=== PATIENT | male | born 1980 | race American Indian/Alaskan Native ===

== ENCOUNTER 2019-12-19 15:48 | Emergency (ER) | payer OTHER ==
[2019-12-19] MEDS ORDERED: ASPIRIN 325 MG TAB PO ONE (16:02)
--- NOTE | 2019-12-19 16:41 | XRay Report ---
CHEST 1 VIEW INDICATION / CLINICAL INFORMATION: Chest Pain. COMPARISON: 02/09/2016 FINDINGS: SUPPORT DEVICES: None. HEART / MEDIASTINUM: No significant abnormality. LUNGS / PLEURA: No significant pulmonary or pleural abnormality. No pneumothorax. ADDITIONAL FINDINGS: No significant additional findings. IMPRESSION: 1. No acute findings. Signer Name: Jacob Chatman MD Signed: 12/19/2019 4:37 PM Workstation Name: [id number]
[2019-12-19 16:48] LABS: Hemoglobin 12.8 gm/dl (11.8-15.2); Mean Corpuscular HGB Conc 33 % (32-34); Mean Corpuscular Volume 89 fl (84-94); Platelet Count 233 K/mm3 (140-440); Red Blood Count 4.38 M/mm3 (3.65-5.03); Red Cell Distribution Width 13.2 % (13.2-15.2)
[2019-12-19 17:07] LABS: BUN/Creatinine Ratio 7; Blood Urea Nitrogen 8 mg/dL (9-20); Calcium 8.5 mg/dL (8.4-10.2); Hemolysis Index 24
--- NOTE | 2019-12-19 17:51 | Emergency Department Report ---
ED Chest Pain HPI - General Chief Complaint: Chest Pain Stated Complaint: CP/LFT SIDE NUMB Time Seen by Provider: 12/19/19 17:38 Source: patient Mode of arrival: Ambulatory Limitations: No Limitations - History of Present Illness Initial Comments: This is a 39-year-old -[place] male presents to the emergency department with a complaint of having some decreased sensation to the left arm, and some generalized chest tightness, that has been going on since last night. Patient has a history of IV heroin abuse but says that last night he also did IV methamphetamines. He is not as used to using methamphetamines and says that he thought the symptoms were related to that drug. However the patient says that the symptoms continued today which is what brought him in to be seen. He denies any headache, vision change, slurred speech, shortness of breath, fever. He has not taken anything for symptoms prior to presentation today. He denies any other past medical history. No known aggravating or alleviating factors. - Related Data Home Medications Medication Instructions Recorded Confirmed Last Taken No Known Home Medications [No 10/10/15 02/09/16 Unknown Reported Home Medications] Allergies Allergy/AdvReac Type Severity Reaction Status Date / Time No Known Allergies Allergy Verified 12/19/19 15:49 Heart Score - HEART Score History: Slightly suspicious EKG: Normal Age: < 45 Risk factors: No known risk factors Troponin: < normal limit HEART Score: 0 - Critical Actions Critical Actions: 0-3 pts:0.9-1.7%risk of adverse cardiac event.Candidate for discharge ED Review of Systems ROS: Stated complaint: CP/LFT SIDE NUMB Other details as noted in HPI Comment: All other systems reviewed and negative Constitutional: denies: chills, fever Eyes: denies: eye pain, vision change ENT: denies: ear pain, throat pain Respiratory: denies: cough, shortness of breath Cardiovascular: chest pain. denies: palpitations Gastrointestinal: denies: abdominal pain, vomiting Genitourinary: denies: dysuria, discharge Musculoskeletal: back pain. denies: joint swelling Skin: denies: rash, lesions Neurological: numbness. denies: headache ED Past Medical Hx - Past Medical History Previous Medical History?: No - Surgical History Hx Appendectomy: Yes - Social History Smoking Status: Never Smoker Substance Use Type: None - Medications Home Medications: Home Medications Medication Instructions Recorded Confirmed Last Taken Type No Known Home Medications [No 10/10/15 02/09/16 Unknown History Reported Home Medications] ED Physical Exam - General Limitations: No Limitations - Other Other exam information: GENERAL: The patient is well-developed well-nourished. HENT: Normocephalic. Atraumatic. Patient has moist mucous membranes. EYES: Extraocular motions are intact. Pupils equal reactive to light bilaterally. No nystagmus. NECK: Supple. Trachea is midline. CHEST/LUNGS: Clear to auscultation. There is no respiratory distress noted. HEART/CARDIOVASCULAR: Regular. There is no tachycardia. There is no murmur. ABDOMEN: Abdomen is soft, nontender. Patient has normal bowel sounds. There is no abdominal distention. SKIN: Skin is warm and dry. NEURO: The patient is awake, alert, and oriented. The patient is cooperative. The patient has no focal neurologic deficits. Normal speech. Cranial nerves II through XII grossly intact. MUSCULOSKELETAL: There is no tenderness or deformity. There is no limitation range of motion. There is no evidence of acute injury. Muscle strength 5-5 for upper and lower extremities bilaterally. Radial pulse +2/4 bilaterally. ED Course Vital Signs 12/19/19 12/19/19 12/19/19 15:53 18:18 19:00 Temperature 98.0 F 98.6 F Pulse Rate 83 142 H 92 H Respiratory 22 18 17 Rate Blood Pressure 115/65 135/80 Blood Pressure 132/82 [Right] O2 Sat by Pulse 97 100 99 Oximetry JOSE score - Jose Score Age > 65: (0) No Aspirin use within the Past 7 Days: (0) No 3 or more CAD Risk Factors: (0) No 2 or more Angina events in past 24 hrs: (1) Yes Known CAD with more than 50% Stenosis: (0) No Elevated Cardiac Markers: (0) No ST Deviation Greater than 0.5mm: (0) No JOSE Score: 1 ED Medical Decision Making - Lab Data Result diagrams: 12/19/19 16:28 12/19/19 16:28 - EKG Data -: EKG Interpreted by Me EKG shows normal: sinus rhythm, axis, intervals, QRS complexes, ST-T waves Rate: normal - EKG Data When compared to previous EKG there are: previous EKG unavailable Interpretation: normal EKG - Radiology Data Radiology results: report reviewed, image reviewed interpreted by me: Chest x-ray does not show any acute process. There are no pleural effusions, obvious pneumonia and there is no pneumothorax. No significant cardiomegaly. CT head/brain wo con INDICATION / CLINICAL INFORMATION: 39 years Male; left arm numbness. TECHNIQUE: Routine CT head without contrast. All CT scans at this location are performed using CT dose reduction for ALARA by means of automated exposure control. COMPARISON: None. FINDINGS: BRAIN / INTRACRANIAL CONTENTS: The motion degrades the image quality. However, the ventricular system is appropriate in size and configuration. There is no clear evidence of significant mass effect or midline shift., There is no clear CT evidence of acute intracranial hemorrhage. ORBITS: No significant abnormality of visualized orbits. SINUSES / MASTOIDS: No significant abnormality in the visualized paranasal sinuses or mastoid air cells. CRANIOCERVICAL JUNCTION: No significant abnormality. ADDITIONAL FINDINGS: None. IMPRESSION: 1. The study is limited by motion. However, there is no clear CT evidence of acute intracranial process. CT ANGIOGRAPHY OF THE CHEST WITH INTRAVENOUS CONTRAST AND MULTIPLANAR MIP RECONSTRUCTIONS INDICATION / CLINICAL INFORMATION: Chest pain and elevated d- dimer. TECHNIQUE: Axial CT images were obtained after injection of 100 cc Omni paque 350 IV contrast using CTA protocol. 3 plane MIP / 3D reconstructions were produced. All CT scans at this location are performed using CT dose reduction for ALARA by means of automated exposure control. COMPARISON: None available. FINDINGS: There is suboptimal timing of the bolus with poor opacification of the pulmonary arterial system. The patient left AMA before a repeat exam could be performed. There is opacification of the pu lmonary veins, left heart and aorta. The study is indeterminate for PTE. No large filling defect is seen centrally. The aorta is normal in caliber without dissection. The visualized coronary vessels are normal. The tracheobronchial tree is normal. The lung parenchyma is clear. There is no evidence of effusion or adenopathy. The visualized upper abdomen is normal. No acute osseous abnormality is seen. IMPRESSION: 1. Suboptimal study is indeterminate for acute PTE. 2. No acute intrathoracic disease is identified. - Medical Decision Making This patient presents to the emergency department with a complaint of some chest discomfort and left arm numbness going on since yesterday. The patient admits to using IV heroin and methamphetamines. An EKG was done that does not have any morphology consistent with ST elevation [place]. Patient's labs were mostly unremarkable including CBC, metabolic panel, negative troponins x2 but the patient did have an elevated d-dimer level. He also had a urine drug screen positive for amphetamines and cocaine, but was negative for opiates. Patient had a CT scan of the head without contrast that was negative for any bleed, shift, mass, ischemia, or any other acute process. He had a CT angiography of the chest that did not show any obvious signs for pulmonary embolism. Initially there was a delay in having the CT angiography of the chest read as it was a suboptimal contrast bolus and I was told that radiology had requested the patient have repeat imaging studies done. When the dental technician apprentice went to discuss this with the patient, the patient had eloped from the emergency department. Critical Care Time: No Critical care attestation.: If time is entered above; I have spent that time in minutes in the direct care of this critically ill patient, excluding procedure time. ED Disposition Clinical Impression: IV drug abuse, Polysubstance abuse Chest pain Qualifiers: Chest pain type: unspecified Qualified Code(s): R07.9 - Chest pain, unspecified Disposition: Z07 ELOPED Is pt being admited?: No Time of Disposition: 01:11
[2019-12-19 18:06] LABS: Total Cells Counted 100
[2019-12-19 18:08] LABS: Large Platelets Few; Platelet Estimate Consistent w Auto; RBC Morphology Normal
[2019-12-19 19:11] VITALS: BP 135/80
[2019-12-19 19:24] LABS: Benzodiazepines Screen,Urine Negative; Cannabinoid Screen,Urine Negative; Methadone Screen,Urine Negative; Opiate Screen,Urine Negative
[2019-12-19 19:35] LABS: Bilirubin,Urine NEG (Negative); Blood,Urine NEG (Negative); Color,Urine Yellow (Yellow); Mucus,Urine FEW /HPF; Protein,Urine <15 mg/dL mg/dL (Negative)
--- NOTE | 2019-12-19 20:12 | Cat Scan Report ---
CT head/brain wo con INDICATION / CLINICAL INFORMATION: 39 years Male; left arm numbness. TECHNIQUE: Routine CT head without contrast. All CT scans at this location are performed using CT dos e reduction for ALARA by means of automated exposure control. COMPARISON: None. FINDINGS: BRAIN / INTRACRANIAL CONTENTS: The motion degrades the image quality. However, the ventricular system is appropriate in size and configuration. There is no clear evidence of significant mass effect or m idline shift., There is no clear CT evidence of acute intracranial hemorrhage. ORBITS: No significant abnormality of visualized orbits. SINUSES / MASTOIDS: No significant abnormality in the visualized paranasal sinuses or mastoid air nicole ls. CRANIOCERVICAL JUNCTION: No significant abnormality. ADDITIONAL FINDINGS: None. IMPRESSION: 1. The study is limited by motion. However, there is no clear CT evidence of acute intracranial proce ss. Signer Name: Nahun Nair MD Signed: 12/19/2019 8:08 PM Workstation Name: [id number]
[2019-12-19] MEDS ORDERED: ACETAMINOPHEN 325 MG TAB PO ONE (20:26)
[2019-12-19 20:37] LABS: Amphetamine Screen,Urine Positive; Cocaine Screen,Urine Positive
--- NOTE | 2019-12-19 21:28 | Cat Scan Report ---
CT ANGIOGRAPHY OF THE CHEST WITH INTRAVENOUS CONTRAST AND MULTIPLANAR MIP RECONSTRUCTIONS INDICATION / CLINICAL INFORMATION: Chest pain and elevated d-dimer. TECHNIQUE: Axial CT images were obtained after injection of 100 cc Omnipaque 350 IV contrast using CTA protocol. 3 plane MIP / 3D reconstructions were produced. All CT scans at this location are performed using CT dose reduction for ALARA by means of automated exposure control. COMPARISON: None available. FINDINGS: There is suboptimal timing of the bolus with poor opacification of the pulmonary arterial system. The patient left AMA before a repeat exam could be performed. There is opacification of the pulmonary ve ins, left heart and aorta. The study is indeterminate for PTE. No large filling defect is seen centra lly. The aorta is normal in caliber without dissection. The visualized coronary vessels are normal. The tracheobronchial tree is normal. The lung parenchyma is clear. There is no evidence of effusion o r adenopathy. The visualized upper abdomen is normal. No acute osseous abnormality is seen. IMPRESSION: 1. Suboptimal study is indeterminate for acute PTE. 2. No acute intrathoracic disease is identified. Signer Name: Jacob Hinson MD Signed: 12/19/2019 9:24 PM Workstation Name: [id number]
== END 2019-12-19 21:38 | disposition left against medical advice (07) ==
LOC: ED 15:48
DX: R07.89 Other chest pain (principal); F19.10 Other psychoactive substance abuse, uncomplicated; Z90.49 Acquired absence of other specified parts of digestive tract
CPT/HCPCS: 36415; 70450; 71045; 71275; 80048; 80307; 81001; 82962; 84484; 85007; 85025; 85379; 93005; 99285; Q9967

== ENCOUNTER 2020-06-20 23:12 | Emergency (ER) | payer OTHER | END 2020-06-20 23:32 | disposition left against medical advice (07) | LOC: ED 23:12 | DX: R07.89 Other chest pain (principal); Z53.21 Procedure and treatment not carried out due to patient leaving prior to being seen by health care provider | CPT/HCPCS: 93005 ==